=== PATIENT | female | born 1935 | race Caucasian/White ===

== ENCOUNTER 2020-08-15 20:11 | Emergency (ER) | payer MEDICARE ==
[~2020-08-15 20:11] MED LIST: ALL DAY ALLERGY10 M2 PO; ARICEPT 5MG TABL5 MG PO; ASPIRIN EC81 MG PO; CELEXA20 MG PO; CHOLESTYRAMINE L4 GM PO; CRANBERRY500 M3 PO; DUONEB 2.5-0.5M1 AMP NEB; IMODIUM2 MG PO; INDERAL20 MG PO; K-DUR20 MEQ PO; KLONOPIN0.5 MG PO; LASIX40 MG PO; LOMOTIL1 EACH PO; NORCO 7.5-3251 EACH PO; PHENERGAN25 M1 PO; PRAVACHOL80 MG PO; PREVALITE4 GM PO; PROTONIX 40MG T40 MG PO; SYNTHROID50 MCG PO; VITAMIN D250000 UNIT PO
[2020-08-15 21:49] LABS: BASOPHIL 0.4 % (0-2); HCT 41.5 % (37.0-47.0); HGB 12.1 g/dl (12.5-16.0); LYMPHOCYTE 17.8 % (15-48); MCHC 29.2 g/dL (32.0-36.0); MCV 85.7 fL (78.0-100.0); MONOCYTE 9.8 % (0-12); MPV 10.7 fL (6.0-9.5); NEUTROPHIL 69.5 % (41-80); NRBC 0; PLT 223 K/uL (150-400); RBC 4.84 M/uL (4.20-5.40); RDW 15.2 % (11.5-14.0); WBC 8.2 K/uL (4.0-10.5)
[2020-08-15 22:10] LABS: BUN/CREAT RATIO (CALC) 32.2 RATIO; CREATININE 0.59 mg/dL (0.51-0.95); POTASSIUM 4.2 mmol/L (3.5-5.1)
== END 2020-08-15 23:06 | disposition home or self-care (01) ==
LOC: FER 20:11
PROVIDERS: Nurse Practitioner Family
DX: Z04.3 Encounter for examination and observation following other accident (principal); F03.90 Unspecified dementia, unspecified severity, without behavioral disturbance, psychotic disturbance, mood disturbance, and anxiety; I13.0 Hypertensive heart and chronic kidney disease with heart failure and stage 1 through stage 4 chronic kidney disease, or unspecified chronic kidney disease; N18.9 Chronic kidney disease, unspecified; I50.9 Heart failure, unspecified; Z88.8 Allergy status to other drugs, medicaments and biological substances; W19.XXXA Unspecified fall, initial encounter
CPT/HCPCS: 36415; 70450; 71045; 72125; 73502; 80048; 85025; J7040

== ENCOUNTER 2021-09-20 17:37 | Emergency (ER) | payer MEDICARE ==
[2021-09-20 19:31] LABS: BASOPHIL 0.6 % (0-2); EOSINOPHIL 1.1 % (0-7); HCT 42.3 % (37.0-47.0); HGB 12.8 g/dl (12.5-16.0); LYMPHOCYTE 13.1 % (15-48); MCH 27.7 pg (25.0-31.0); MCHC 30.3 g/dL (32.0-36.0); MCV 91.6 fL (78.0-100.0); MONOCYTE 12.3 % (0-12); MPV 10.5 fL (6.0-9.5); NEUTROPHIL 71.5 % (41-80); NRBC 0; PLT 331 K/uL (150-400); RBC 4.62 M/uL (4.20-5.40); RDW 15.6 % (11.5-14.0); WBC 10.2 K/uL (4.0-10.5)
[2021-09-20 19:48] LABS: ALBUMIN 2.7 g/dL (3.4-5.0); BILIRUBIN - TOTAL 0.4 mg/dL (0.2-1.0); BUN/CREAT RATIO (CALC) 40.7 RATIO; CREATININE 0.81 mg/dL (0.51-0.95); GLOBULIN (CALCULATION) 4.4 g/dL; POTASSIUM 4.4 mmol/L (3.5-5.1); TOTAL PROTEIN 7.1 g/dL (6.4-8.2)
== END 2021-09-21 00:05 | disposition home or self-care (01) ==
LOC: FER 17:37
PROVIDERS: Emergency Medicine
DX: S72.401A Unspecified fracture of lower end of right femur, initial encounter for closed fracture (principal); S01.01XA Laceration without foreign body of scalp, initial encounter; F03.90 Unspecified dementia, unspecified severity, without behavioral disturbance, psychotic disturbance, mood disturbance, and anxiety; I13.0 Hypertensive heart and chronic kidney disease with heart failure and stage 1 through stage 4 chronic kidney disease, or unspecified chronic kidney disease; N18.2 Chronic kidney disease, stage 2 (mild); I50.9 Heart failure, unspecified; E66.01 Morbid (severe) obesity due to excess calories; Z79.82 Long term (current) use of aspirin; W06.XXXA Fall from bed, initial encounter; Y92.129 Unspecified place in nursing home as the place of occurrence of the external cause; Y93.89 Activity, other specified
CPT/HCPCS: 36415; 70450; 71045; 72125; 72170; 73552; 73560; 80053; 85025; J2001

== ENCOUNTER 2021-10-05 13:12 | Inpatient (IN) | payer MEDICARE, OTHER ==
[~2021-10-05] VITALS: Ht 165.1 cm; Wt 89.0 kg
[~2021-10-05 13:12] MED LIST changes: +BACTRIM DS TAB1 EACH PO
[2021-10-05 14:11] LABS: BASOPHIL 1.1 % (0-2); EOSINOPHIL 4.3 % (0-7); HCT 38.1 % (37.0-47.0); HGB 10.5 g/dl (12.5-16.0); LYMPHOCYTE 26.7 % (15-48); MCH 29.5 pg (25.0-31.0); MCHC 27.6 g/dL (32.0-36.0); MONOCYTE 8.9 % (0-12); MPV 12.5 fL (6.0-9.5); NEUTROPHIL 56.8 % (41-80); NRBC 0.4; PLT 228 K/uL (150-400); RBC 3.56 M/uL (4.20-5.40); RDW 19.4 % (11.5-14.0); WBC 4.6 K/uL (4.0-10.5)
[2021-10-05 14:23] LABS: BUN/CREAT RATIO (CALC) 31.9 RATIO; CREATININE 0.72 mg/dL (0.51-0.95)
[2021-10-05 15:03] LABS: BILIRUBIN NEGATIVE (NEGATIVE); BLOOD NEGATIVE Ery/uL (NEGATIVE); CLARITY CLEAR (CLEAR); COLOR YELLOW (YELLOW); GLUCOSE (U) NORMAL (NORMAL); LEUKOCYTES NEGATIVE Leu/uL (NEGATIVE); NITRITE NEGATIVE (NEGATIVE); PROTEIN NEGATIVE (NEGATIVE); SPECIFIC GRAVITY 1.025 (1.001-1.030); UROBILINOGEN 0.2 mg/dL (0.2-1.0); pH 5.5 (5.0-9.0)
[2021-10-05 16:40] LABS: CORONAVIRUS 2019 SARS-COV-2 NEGATIVE (NEGATIVE); INFLUENZA A NAA NEGATIVE (NEGATIVE)
[2021-10-05] MEDS ORDERED: ASPIRIN EC81 MG PO (18:08)
[2021-10-05] MEDS ORDERED: 8 HOUR650 MG PO (18:08)
[2021-10-05] MEDS ORDERED: BETADINE1 EACH TOP (18:09)
[2021-10-05] MEDS ORDERED: PREVALITE4 GM PO (18:10)
[2021-10-05] MEDS ORDERED: DEPAKOTE SPRIN125 M2 PO (18:10)
[2021-10-05] MEDS ORDERED: DRISDOL50000 UNIT PO (18:11)
[2021-10-05] MEDS ORDERED: JUVEN PACKET1 EAC1 PO (18:12)
[2021-10-05] MEDS ORDERED: HYDROCODON-ACE1 EAC2 PO ×2 (18:12)
[2021-10-05] MEDS ORDERED: IMODIUM2 MG PO (18:13)
[2021-10-05] MEDS ORDERED: SYNTHROID25 MCG PO (18:13)
[2021-10-05] MEDS ORDERED: LASIX40 MG PO (18:13)
[2021-10-05] MEDS ORDERED: ATIVAN0.5 MG PO ×2 (18:14)
[2021-10-05] MEDS ORDERED: MELATONIN5 M2 PO (18:14)
[2021-10-05] MEDS ORDERED: NYSTATIN1 EAC2 TOP (18:15)
[2021-10-05] MEDS ORDERED: PRILOSEC20 MG PO (18:15)
[2021-10-05] MEDS ORDERED: EFFER-K 20 MEQ20 MEQ PO (18:16)
[2021-10-05] MEDS ORDERED: PRAVASTATIN SOD80 MG PO (18:16)
[2021-10-05] MEDS ORDERED: SILVADENE20 GM TOP (18:16)
[2021-10-05 18:58] LABS: BUN/CREAT RATIO (CALC) 31.4 RATIO; CREATININE 0.7 mg/dL (0.51-0.95); FT4 (FREE T4) 1.1 ng/dL (0.76-1.46); POTASSIUM 3.3 mmol/L (3.5-5.1)
[2021-10-06 07:01] LABS: BUN/CREAT RATIO (CALC) 28.6 RATIO; CREATININE 0.56 mg/dL (0.51-0.95); FOLIC ACID (SERUM) 4.6 ng/mL (8.6-58.9); MAGNESIUM 1.9 mg/dL (1.8-2.4); POTASSIUM 3.6 mmol/L (3.5-5.1)
--- NOTE | 2021-10-06 16:13 | NUR ---
PT IS A RESIDENT OF [facility]. TC TO SON, EDUARDO ANDREWS POA [phone]. HE WOULD LIKE FOR HIS MOM TO RETURN TO [facility]. TC TO [place] AT [facility], PT MAY RETURN BACK TO [facility]. PT WILL NEED A COVID TEST. REPORT NUMBER IS [id number] FAX DISCHARGE SUMMARY TO [phone].
[2021-10-06 16:45] LABS: BUN/CREAT RATIO (CALC) 21.7 RATIO; CREATININE 0.46 mg/dL (0.51-0.95); POTASSIUM 3.3 mmol/L (3.5-5.1)
[2021-10-07 06:11] LABS: BASOPHIL 0.2 % (0-2); HCT 28.1 % (37.0-47.0); HGB 8.4 g/dl (12.5-16.0); MCH 29.3 pg (25.0-31.0); MCHC 29.9 g/dL (32.0-36.0); MONOCYTE 10.2 % (0-12); MPV 11.7 fL (6.0-9.5); NEUTROPHIL 64.3 % (41-80); NRBC 0.5; PLT 221 K/uL (150-400); RBC 2.87 M/uL (4.20-5.40); RDW 18.2 % (11.5-14.0); WBC 4.3 K/uL (4.0-10.5)
[2021-10-07 06:18] LABS: MCV 97.9 fL (78.0-100.0)
[2021-10-07 06:35] LABS: BUN/CREAT RATIO (CALC) 12.8 RATIO; CREATININE 0.47 mg/dL (0.51-0.95); POTASSIUM 3.8 mmol/L (3.5-5.1)
--- NOTE | 2021-10-07 10:49 | NUR ---
COVID TEST DONE ON PATIENT AT THIS TIME. BEFORE GOING TO [place]. AWAITING RESULTS
--- NOTE | 2021-10-07 14:34 | NUR ---
WC WENT UP TO SEE PATIENT AND SHE WAS BEING DISCHARGED BACK TO [facility]
== END 2021-10-07 13:50 | DRG 640 ==
LOC: FER 13:12 → FMS 14:53
PROVIDERS: Nurse Practitioner Family; ADMIT Allergy & Immunology Allergy
DX: E87.0 Hyperosmolality and hypernatremia (principal); R53.2 Functional quadriplegia; I13.0 Hypertensive heart and chronic kidney disease with heart failure and stage 1 through stage 4 chronic kidney disease, or unspecified chronic kidney disease; Z20.822 Contact with and (suspected) exposure to COVID-19; E86.0 Dehydration; R62.7 Adult failure to thrive; Z68.32 Body mass index [BMI] 32.0-32.9, adult; F03.90 Unspecified dementia, unspecified severity, without behavioral disturbance, psychotic disturbance, mood disturbance, and anxiety; I50.9 Heart failure, unspecified; N18.9 Chronic kidney disease, unspecified; L89.629 Pressure ulcer of left heel, unspecified stage; L89.619 Pressure ulcer of right heel, unspecified stage; E78.5 Hyperlipidemia, unspecified; I48.91 Unspecified atrial fibrillation; L89.529 Pressure ulcer of left ankle, unspecified stage; L89.519 Pressure ulcer of right ankle, unspecified stage; E11.22 Type 2 diabetes mellitus with diabetic chronic kidney disease; E03.9 Hypothyroidism, unspecified; F41.9 Anxiety disorder, unspecified; F32.A Depression, unspecified; K21.9 Gastro-esophageal reflux disease without esophagitis; Z74.01 Bed confinement status; Z90.49 Acquired absence of other specified parts of digestive tract; Z98.41 Cataract extraction status, right eye; Z98.42 Cataract extraction status, left eye; Z88.0 Allergy status to penicillin; Z91.041 Radiographic dye allergy status; Z91.040 Latex allergy status; Z79.899 Other long term (current) drug therapy; Z79.82 Long term (current) use of aspirin
CPT/HCPCS: 36415; 80048; 81003; 82607; 82746; 83605; 83735; 84439; 84443; 85025; 99284; J1650; J7060; J7070; U0002